=== PATIENT | female | born 1940 | race Caucasian/White ===

== ENCOUNTER → 2022-02-05 15:19 | Outpatient (BNVA) | payer MEDICARE, SELFPAY | PROVIDERS: PCP Nurse Practitioner; Visit Provider Nurse Practitioner | DX: I10 Essential (primary) hypertension (principal) | CPT/HCPCS: 80053; 81003; 85025 ==

== ENCOUNTER → 2024-06-18 10:32 | Outpatient (BNVA) | payer MEDICARE, SELFPAY | PROVIDERS: PCP Nurse Practitioner; Visit Provider Nurse Practitioner Family | DX: R30.0 Dysuria (principal); N39.0 Urinary tract infection, site not specified | CPT/HCPCS: 81003; 87077; 87086; 87184 ==

== ENCOUNTER → 2024-07-29 12:00 | Outpatient (BNVA) | payer MEDICARE, SELFPAY | PROVIDERS: Visit Provider Family Medicine | DX: R30.0 Dysuria (principal) | CPT/HCPCS: 81000; 87086 ==

== ENCOUNTER 2024-10-11 14:22 | Outpatient (CLI) | payer MEDICARE, SELFPAY ==
--- NOTE | 2024-10-11 14:46 | XR_ITS ---
WS: [id number] SCREENING DEXA SCAN [facility] CLINICAL INFORMATION: POSTMENOPAUSAL FINDINGS: The L1-L4 bone mineral density measures 1.116 g/cm2. This corresponds to a T score score of -0.5 and Z score of 0.2. Left femoral neck bone mineral density measures 0.804 g/cm2. This corresponds to a T score of -1.6 and Z score of -0.2. Right femoral neck bone mineral density measures 0.640 g/cm2. This corresponds to a T score -2.9of and Z score of -1.5. Mean femoral neck bone mineral density measures 0.722 g/cm2. This corresponds to a T score of -2.3 and Z score of -0.9. XR/XR DEXA axial skeleton* [id number] IMPRESSION: Normal bone mineralization lumbar spine. Osteopenia femoral necks Patient's FRAX calculated 10 year probability for major osteoporotic fracture i s 17.3% and osteoporotic hip fracture is 5.9%.
== END 2024-10-11 14:23 | disposition home or self-care (01) ==
PROVIDERS: PCP Electrodiagnostic Medicine; Visit Provider Electrodiagnostic Medicine
DX: Z78.0 Asymptomatic menopausal state (principal); M85.80 Other specified disorders of bone density and structure, unspecified site
CPT/HCPCS: 77080

== ENCOUNTER 2024-11-19 11:50 | Outpatient (CLI) | payer MEDICARE, SELFPAY ==
--- NOTE | 2024-11-19 11:58 | USR_ITS ---
PROCEDURE INFORMATION: Exam: US Retroperitoneal, Complete, Kidneys and Bladder Exam date and time: 11/19/2024 12:08 PM Age: 84 years old Clinical indication: Other: Hematuria TECHNIQUE: Imaging protocol: Real-time ultrasound of the retroperitoneum with image documentation. Complete exam focused on the bilateral kidneys and urinary bladder. COMPARISON: No relevant prior studies available. FINDINGS: Right kidney: Normal. The right kidney measures 8.2 cm in craniocaudal dimension. No stones. No hydronephrosis. Left kidney: Normal. The left kidney measures 10.1 cm in craniocaudal dimension. No stones. No hydronephrosis. Urinary bladder: Poor visualization of the urinary bladder secondary to underdistention. US/US renal BI* [id number] IMPRESSION: 1. Unremarkable ultrasound of the kidneys. 2. Poor visualization of the urinary bladder due to underdistention.
== END 2024-11-19 11:51 | disposition home or self-care (01) ==
LOC: RAD 11:52
PROVIDERS: PCP Electrodiagnostic Medicine; Visit Provider Nurse Practitioner Family
DX: R31.9 Hematuria, unspecified (principal); N20.0 Calculus of kidney
CPT/HCPCS: 76770